=== PATIENT | female | born 1950 | race Caucasian/White ===

== ENCOUNTER 2017-07-03 05:26 | Day surgery (SDC) | payer MEDICAID, MEDICARE ==
[2017-07-01 09:49] LABS: ABSOLUTE EOSINOPHILS # (AUTO) 0.1 10^3/uL (0.0-0.6); ABSOLUTE LYMPHOCYTES (AUTO) 2.3 10^3/uL (0.5-4.7); ABSOLUTE MONOCYTES (AUTO) 0.9 10^3/uL (0.1-1.4); ABSOLUTE NEUT (AUTO) 5.7 10^3/uL (1.7-8.2); BASOPHILS % (AUTO) 0.3 % (0-2); EOSINOPHILS % (AUTO) 1.1 % (0-6); HEMATOCRIT 37.7 % (36.0-47.0); HEMOGLOBIN 12.9 g/dL (12.0-15.5); LYMPHOCYTES % (AUTO) 25.7 % (13-45); MEAN CORPUSCULAR HEMOGLOBIN 29.4 pg (27.0-33.4); MEAN CORPUSCULAR HGB CONC 34.2 g/dL (32.0-36.0); MEAN CORPUSCULAR VOLUME 86 fl (80-97); MONOCYTES % (AUTO) 10.2 % (3-13); RED BLOOD COUNT 4.38 10^6/uL (3.72-5.28); SEGMENTED NEUTROPHILS % (AUTO) 62.7 % (42-78); WHITE BLOOD COUNT 9.1 10^3/uL (4.0-10.5)
[2017-07-01 09:54] LABS: APPEARANCE,URINE CLEAR; BILIRUBIN,URINE NEGATIVE (NEGATIVE); GLUCOSE, URINE NEGATIVE (NEGATIVE); KETONES,URINE NEGATIVE (NEGATIVE); LEUKOCYTE ESTERASE,URINE SMALL (NEGATIVE); NITRITE,URINE NEGATIVE (NEGATIVE); PROTEIN,URINE NEGATIVE (NEGATIVE); URINE SPECIFIC GRAVITY 1.005; UROBILINOGEN,URINE NEGATIVE mg/dL (<2.0)
[2017-07-01 10:15] LABS: ANION GAP 8 (5-19); BLOOD UREA NITROGEN 10 mg/dL (7-20); CALCIUM 9.1 mg/dL (8.4-10.2); CARBON DIOXIDE 25 mmol/L (22-30); CHLORIDE 105 mmol/L (98-107); GLUCOSE 56 mg/dL (75-110); POTASSIUM 4.5 mmol/L (3.6-5.0); SODIUM 137.8 mmol/L (137-145)
--- NOTE | 2017-07-01 11:01 | RADIOLOGY REPORT (SQ) ---
EXAM DESCRIPTION: CHEST PA/LATERAL COMPLETED DATE/TIME: 07/01/2017 10:32 am REASON FOR STUDY: PRE OP COMPARISON: 04/27/2013 EXAM PARAMETERS: NUMBER OF VIEWS: two views TECHNIQUE: Digital Frontal and Lateral radiographic views of the chest acquired. RADIATION DOSE: NA LIMITATIONS: none FINDINGS: LUNGS AND PLEURA: No opacities, masses or pneumothorax. No pleural effusion. MEDIASTINUM AND HILAR STRUCTURES: No masses or contour abnormalities. HEART AND VASCULAR STRUCTURES: Heart normal size. No evidence for failure. BONES: No acute findings. HARDWARE: None in the chest. OTHER: No other significant finding. IMPRESSION: NO SIGNIFICANT RADIOGRAPHIC FINDING IN THE CHEST. TECHNICAL DOCUMENTATION: JOB ID: [id number] [email or web address]- All Rights Reserved
--- NOTE | 2017-07-01 13:14 | EKG REPORT ---
SEVERITY:- OTHERWISE NORMAL ECG - SINUS RHYTHM LATE PRECORDIAL TRANSITION. : Confirmed by: Augustin Simmons MD 01-Jul-2017 13:13:27
[~2017-07-03 05:26] MED LIST: CEFAZOLIN 2 GM/D5W RTU 2 GM/50 ML RTUPB IV PRN; LACTATED RINGERS 1000 ML IV PRN; LIDOCAINE 0.5% INJ-PF (5 MG/ML) 50 ML SDV SUBCUT PRN
[2017-07-03 06:18] VITALS: BP 116/74
[2017-07-03] MEDS ORDERED: BUPIVACAINE HCL 0.5 % INJ/PF 30 ML SDV ONE (06:55)
[2017-07-03] MEDS ORDERED: LIDOCAINE 1%/EPINEPHRINE INJ 20 ML VIAL ONE (06:55)
[2017-07-03] MEDS ORDERED: FENTANYL CITRATE INJ/PF 100 MCG/2 ML AMPUL ONE (06:58)
[2017-07-03] MEDS ORDERED: KETAMINE HCL INJ 500 MG/10 ML VIAL ONE (06:58)
[2017-07-03] MEDS ORDERED: PROPOFOL INJ 200 MG/20 ML VIAL IV ONE (06:59)
[2017-07-03] MEDS ORDERED: MIDAZOLAM 2 MG/2 ML INJ ONE (06:59)
== END 2017-07-03 07:20 | disposition home or self-care (01) ==
LOC: OROUT 05:26
PROVIDERS: ATTEND Orthopaedic Surgery
DX: Z01.818 Encounter for other preprocedural examination (principal); S83.242A Other tear of medial meniscus, current injury, left knee, initial encounter; X58.XXXA Exposure to other specified factors, initial encounter
CPT/HCPCS: 93005; 36415; 85025; 80048; 81001; 71020; 93010; J3490; J0690; J2250; J2704; J3010

== ENCOUNTER 2017-07-10 08:04 | Day surgery (SDC) | payer MEDICARE ==
[2017-07-10] MEDS ORDERED: MIDAZOLAM 2 MG/2 ML INJ ONE (08:34)
[2017-07-10] MEDS ORDERED: FENTANYL CITRATE INJ/PF 100 MCG/2 ML AMPUL ONE (08:34)
[2017-07-10] MEDS ORDERED: PROPOFOL INJ 200 MG/20 ML VIAL IV ONE (08:35)
[2017-07-10] MEDS ORDERED: BUPIVACAINE HCL 0.5 % INJ/PF 30 ML SDV ONE (08:37)
[2017-07-10] MEDS ORDERED: LIDOCAINE 1%/EPINEPHRINE INJ 20 ML VIAL ONE (08:37)
[2017-07-10] MEDS ORDERED: KETAMINE HCL INJ 500 MG/10 ML VIAL ONE (09:01)
[2017-07-10] MEDS ORDERED: DIPHENHYDRAMINE HCL 50 MG/ML VIAL IV PRN ×2 (09:07→09:11)
[2017-07-10] MEDS ORDERED: MORPHINE SULFATE 10 MG/ML INJ IV PRN ×2 (09:07→09:11)
[2017-07-10] MEDS ORDERED: FENTANYL CITRATE INJ/PF 100 MCG/2 ML AMPUL IV PRN ×6 (09:07→09:11)
[2017-07-10] MEDS ORDERED: PROMETHAZINE HCL INJ 25 MG/1 ML VIAL IV PRN ×4 (09:07→09:11)
[2017-07-10] MEDS ORDERED: OXYCODONE-ACETAMINOPHEN 5-325 MG TABLET PO PRN ×4 (09:07→09:11)
[2017-07-10] MEDS ORDERED: MEPERIDINE HCL/PF INJ 25 MG/1 ML DISP.SYRIN IV PRN ×2 (09:07→09:11)
--- NOTE | 2017-07-10 09:29 | Operative Report ---
Operative Report DATE OF SURGERY: 07/10/17 PREOPERATIVE DIAGNOSIS: Left medial meniscal tear POSTOPERATIVE DIAGNOSIS: Left medial meniscal tear. 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 Grade 2 chondral malacia patellofemoral compartment. Intact ACL. Grade II chondromalacia of the lateral compartment. Lateral meniscal tear OPERATION: Arthroscopic left partial medial and lateral meniscectomy SURGEON: DENICE CONNER ANESTHESIA: LMAC ESTIMATED BLOOD LOSS: Minimal PROCEDURE: With the patient supine on the operative table left lower extremities prepped and draped in sterile fashion. Knee is insufflated with a combination of Marcaine, Xylocaine, and epinephrine through medial lateral patella portals. Subsequently medial lateral patella portals are created and used for the introduction of the arthroscope and debridement instrumentation. The joint is examined in a systematic fashion findings as above. Using combination of basket Benedict, mechanical shaver, and electric frequency ablation probable partial lateral meniscectomy was performed from approximately 5:00 to 12:00 in the face of the dial. Partial medial meniscectomy was similarly performed from approximately 8:00 to 12:00 on the face of the dial. The joint is examined in systematic fashion again with no new findings. Instrumentation was removed. The portals closed with interrupted nylon. A sterile compressive dressing is applied. The patient returned to the PACU in satisfactory condition.
[2017-07-10] MEDS ORDERED: OXYCODONE HCL IR 5 MG TABLET PO PRN (09:39)
[2017-07-10] MEDS ORDERED: ONDANSETRON 4 MG TAB.RAPDIS SL PRN (09:40)
[2017-07-10] MEDS: FENTANYL CITRATE INJ/PF 100 MCG/2 ML AMPUL ONE ×2 (09:45→09:54)
[2017-07-10] MEDS ORDERED: OXYCODONE-ACETAMINOPHEN 5-325 MG TABLET ONE (09:58)
[2017-07-10 11:48] VITALS: BP 134/74
== END 2017-07-10 11:50 | disposition home or self-care (01) ==
LOC: OROUT 08:04
PROVIDERS: ATTEND Orthopaedic Surgery
PROC: 0SBD4ZZ Excision of Left Knee Joint, Percutaneous Endoscopic Approach (ICD-10-PCS; 2017-07-10)
PROC: 0SBD4ZZ Excision of Left Knee Joint, Percutaneous Endoscopic Approach (ICD-10-PCS; principal; 2017-07-10 08:45)
DX: S83.282A Other tear of lateral meniscus, current injury, left knee, initial encounter (principal); S83.242A Other tear of medial meniscus, current injury, left knee, initial encounter; X58.XXXA Exposure to other specified factors, initial encounter; M22.42 Chondromalacia patellae, left knee; K21.9 Gastro-esophageal reflux disease without esophagitis; F17.210 Nicotine dependence, cigarettes, uncomplicated; Z79.899 Other long term (current) drug therapy
CPT/HCPCS: 29880; J2250; J3010; J3490 ×2; A9270; J2704; J0690; 1400

== ENCOUNTER 2019-03-18 11:03 | Day surgery (SDC) | payer MEDICARE, OTHER ==
--- NOTE | 2019-03-11 11:14 | RADIOLOGY REPORT (SQ) ---
EXAM DESCRIPTION: CHEST PA/LATERAL COMPLETED DATE/TIME: 03/11/2019 10:59 am REASON FOR STUDY: PREOP COMPARISON: 04/27/2013 EXAM PARAMETERS: NUMBER OF VIEWS: two views TECHNIQUE: Digital Frontal and Lateral radiographic views of the chest acquired. RADIATION DOSE: NA LIMITATIONS: none FINDINGS: LUNGS AND PLEURA: No opacities, masses or pneumothorax. No pleural effusion. MEDIASTINUM AND HILAR STRUCTURES: No masses or contour abnormalities. HEART AND VASCULAR STRUCTURES: Heart normal size. No evidence for failure. BONES: No acute findings. HARDWARE: None in the chest. OTHER: No other significant finding. IMPRESSION: NO SIGNIFICANT RADIOGRAPHIC FINDING IN THE CHEST. TECHNICAL DOCUMENTATION: JOB ID: [id number] [employer]- All Rights Reserved Reading location - IP/workstation name: [email or web address]
[2019-03-11 11:36] LABS: HEMATOCRIT 37.2 % (36.0-47.0); HEMOGLOBIN 12.7 g/dL (12.0-15.5); MEAN CORPUSCULAR HGB CONC 34.2 g/dL (32.0-36.0); MEAN CORPUSCULAR VOLUME 85 fl (80-97); PLATELET COUNT 444 10^3/uL (150-450); RED BLOOD COUNT 4.38 10^6/uL (3.72-5.28); RED CELL DISTRIBUTION WIDTH 15.2 % (11.5-14.0); WHITE BLOOD COUNT 9.1 10^3/uL (4.0-10.5)
[2019-03-11 12:06] LABS: ANION GAP 8 (5-19); BLOOD UREA NITROGEN 11 mg/dL (7-20); CALCIUM 9.1 mg/dL (8.4-10.2); CARBON DIOXIDE 26 mmol/L (22-30); CHLORIDE 101 mmol/L (98-107); GLUCOSE 80 mg/dL (75-110); POTASSIUM 4.9 mmol/L (3.6-5.0)
--- NOTE | 2019-03-11 12:20 | EKG REPORT ---
SEVERITY:- NORMAL ECG - SINUS RHYTHM : Confirmed by: Augustin Simmons MD 11-Mar-2019 12:20:16
[~2019-03-18 11:03] MED LIST changes: +CEFAZOLIN 1 GM/D5W RTU 1 GM/50 ML RTUPB IV PRN; +LACTATED RINGERS 1000 ML IV PRN; +LIDOCAINE 0.5% INJ-PF (5 MG/ML) 50 ML SDV SUBCUT PRN; -OXYCODONE-ACETAMINOPHEN 5-325 MG TABLET ONE
[2019-03-18] MEDS ORDERED: CEFAZOLIN 1 GM/D5W RTU 1 GM/50 ML RTUPB IV ONE (11:45)
[2019-03-18] MEDS ORDERED: MIDAZOLAM 2 MG/2 ML INJ IV ONE (12:15)
[2019-03-18] MEDS ORDERED: MIDAZOLAM 2 MG/2 ML INJ ONE ×2 (12:22→13:23)
[2019-03-18] MEDS ORDERED: FENTANYL CITRATE INJ/PF 100 MCG/2 ML AMPUL ONE ×2 (13:23→14:13)
[2019-03-18] MEDS ORDERED: PROPOFOL INJ 200 MG/20 ML VIAL IV ONE (13:23)
--- NOTE | 2019-03-18 14:27 | RADIOLOGY REPORT (SQ) ---
EXAM DESCRIPTION: NM LYMPHATICS/LYMPH GLANDS COMPLETED DATE/TIME: 03/18/2019 1:45 pm REASON FOR STUDY: C50.911 MALIGNANT NEOPLASM OF UNSPECIFIED SITE OF RIGHT FEMALE BREAST C50.911 MAL IGNANT NEOPLASM OF UNSP SITE OF RIGHT FEMALE JAD Z01.818 ENCOUNTER FOR OTHER PREPROCEDURAL EXAMINAT ION COMPARISON: None RADIONUCLIDE AND DOSE: 543 microcuries TC-99m tilmanocept - [employer]. The route of agent administration: Subcutaneous in the skin. TECHNIQUE: The skin of the right breast was prepped in sterile fashion. The radiopharmaceutical was administered in equally divided doses in the periareolar breast. LIMITATIONS: None. FINDINGS: Images demonstrate activity at the injection site. IMPRESSION: ADMINISTRATION OF RADIOPHARMACEUTICAL FOR SENTINEL LYMPH NODE EVALUATION. TECHNICAL DOCUMENTATION: JOB ID: [id number] [employer]- All Rights Reserved Reading location - IP/workstation name: [email or web address]
[2019-03-18] MEDS ORDERED: DEXAMETHASONE SOD PHOSPHATE INJ 4 MG/1 ML VIAL ONE (14:59)
[2019-03-18] MEDS ORDERED: ONDANSETRON HCL INJ/PF 4 MG/2 ML SDV ONE (14:59)
[2019-03-18] MEDS ORDERED: KETOROLAC TROMETHAMINE 60 MG/2 ML SDV ONE (14:59)
[2019-03-18] MEDS ORDERED: MORPHINE SULFATE 10 MG/ML INJ IV PRN (15:30)
[2019-03-18] MEDS ORDERED: MEPERIDINE HCL/PF INJ 25 MG/1 ML DISP.SYRIN IV PRN (15:30)
[2019-03-18] MEDS ORDERED: OXYCODONE-ACETAMINOPHEN 5-325 MG TABLET PO PRN ×3 (15:30→16:28)
[2019-03-18] MEDS ORDERED: DIPHENHYDRAMINE HCL 50 MG/ML VIAL IV PRN (15:30)
[2019-03-18] MEDS ORDERED: FENTANYL CITRATE INJ/PF 100 MCG/2 ML AMPUL IV PRN ×3 (15:30)
[2019-03-18] MEDS ORDERED: ONDANSETRON HCL INJ/PF 4 MG/2 ML SDV IV PRN (15:30)
[2019-03-18] MEDS ORDERED: LIDOCAINE 1%/EPINEPHRINE INJ 20 ML VIAL INJ ONE (15:35)
--- NOTE | 2019-03-18 16:28 | Discharge Summary ---
Discharge Summary (SDC) - Discharge Final Diagnosis: Right breast cancer Date of Surgery: 03/18/19 Discharge Date: 03/18/19 Condition: Good Treatment or Instructions: [facility] [address], [place] [address] Care Instructions Following Your Lumpectomy Activities: Resume normal activities when you feel comfortable. It is best to remain as active as possible to speed your recovery. It is common to experience some fatigue after surgery and you may find that short naps are helpful. Avoid strenuous activity such as weight lifting, tennis, etc at your surgical site for two weeks. Perform gentle arm exercises daily and do not favor your operative arm to due increased risk of mobility issues postoperatively. No driving for 7 days after surgery. Do not drive if you are taking pain medication other than Tylenol or Ibuprofen. No swimming, tub baths or soaking in a hot tub for 4 weeks. There are no dietary restrictions. Do not smoke as this impairs wound healing. Surgical Site care: You may shower 24 hours after surgery to include washing the wound with soap and water using your hands. Do not scrub the incision. Pat the area dry with a towel. Leave skin glue intact. You do not need to recover the wound although some patients find that they feel more comfortable using a light dressing for a few days to absorb any minimal drainage which may occur. Do not use heating pad or apply an ice pack to the operative site. You may apply deodorant if you are careful to avoid getting it on the wound itself. Wear a supportive bra. Medications: Take Toradol 10mg one pill by mouth every six hours as needed for pain. Do not take additional NSAIDs such as ibuprofen, goodies powder, advil with the Toradol . You may take Tylenol as needed. You may experience constipation after surgery while taking pain medications. If using a narcotic on a regular basis, take a stool softener such as Colace twice a day. It is helpful to stay hydrated by drinking lots of fluids. Walking is also helpful and is good exercise after surgery. If you need extra help, use Milk of Magnesia according to the directions on the package. Follow-up: Call our office at to make a follow-up appointment in 10-14 days. Your doctor will call to discuss the pathology report with you as soon as it is available. Concerns: If you had a sentinel lymph node biopsy with your mastectomy, your urine may have a greenish discoloration. This is normal and will resolve as the blue dye slowly leaves your system. If you notice significant leakage around the drains, this is not normal. The drains may be clogged. Please call our office to come in immediately for the drains to be checked. Some bruising may occur and will go away over time. If you have a fever of 101.5 or greater, chills, redness at the incision site, excessive drainage from your wound or severe pain not relieved by pain medication, call your doctor. A physician is available 24 hours a day 7 days a week in addition to regular office hours. If problems a rise after normal office hours please call the hospital at . Please call if you have any questions or concerns. Prescriptions: Ketorolac Tromethamine [Toradol 10 mg Tablet] 10 mg PO Q6HP PRN #20 tablet PRN Reason: Referrals: LUISE ALBRIGHT MD [ACTIVE STAFF] - 03/27/19 10:15 am GARCIA FELIX MD [Primary Care Provider] - Discharge Diet: As Tolerated Discharge Activity: Activity As Tolerated, Balance Activity w/Rest, Walk Frequently Report the Following to Your Physician Immediately: Increase in Pain, Fever over 101 Degrees, Unusual Bleeding, Redness, Swelling, Warmth, Drainage-Foul Smelling
--- NOTE | 2019-03-18 16:28 | Operative Report ---
Operative Report DATE OF SURGERY: 03/18/19 PREOPERATIVE DIAGNOSIS: 1. Invasive ductal carcinoma right breast status post core biopsy clip marker placement. 2. Smoker. POSTOPERATIVE DIAGNOSIS: Same OPERATION: 1. [place] lymph node biopsy right axilla x1. 2. Ultrasound directed right breast lumpectomy. 3. Interpretation of intraoperative specimen radiograph SURGEON: LUIS E ALBRIGHT 1ST SOLE SEWER HAND: YASH WRIGHT ANESTHESIA: GA TISSUE REMOVED OR ALTERED: 1 sentinel lymph nodes; right breast lump COMPLICATIONS: None ESTIMATED BLOOD LOSS: Minimal INTRAOPERATIVE FINDINGS: See below PROCEDURE: Patient was seen in the preop holding area underwent lymphoscintigraphy. There was an area of increased uptake of radioactivity in the right axilla. The patient was then taken to the main operating room and general anesthesia was induced. The right arm was abducted, right breast exposed. We then injected the right breast, 10 o'clock position, areolar border, intradermally with 2 cc of full-strength plain blue. The right breast was massaged The right breast and axilla were then prepped and draped in sterile fashion Surgical plan and surgical timeout were conducted. We proceeded with the right breast lumpectomy first. Using ultrasound as a guide, as well as palpation, the target lesion, approximately centimeter tumor was localized 4-1/2 cm from the air areolar border, 11:30 position right breast. The skin was anesthetized 1% plain lidocaine. A standard right breast lumpectomy was then performed by creating an ellipse of skin approximately 6 cm long and half centimeter wide. Underlying parenchyma was removed with the skin using a combination of blunt and electrocautery dissection. The final specimen was removed from the right breast. Again ultrasonography used to keep the target lesion in the center of the lumpectomy specimen. The specimen was marked with a short suture in the superior position long suture in the lateral position. The specimen was taken immediately to Dr. Hossein Gorman, pathologist, who inked the specimen, and transected vertically. The closest margin was felt to be the superior edge, with the tumor approximately 5 mm away. [place] the resection was sufficient We returned to the patient, performed the sentinel lymph node biopsy. Skin was anesthetized in the right axilla with 1% plain lidocaine. A small 2 cm incision was made with a #10 blade, and a single hot blue lymph node with an in vivo count of 13,025, an ex vivo count of 16,766 was removed. It was sent for permanent analysis. We returned to the axilla to check for any other areas of activity and there were none. At this point felt the operation was complete. Sponge and needle counts are correct. Avitene was placed in the recesses of the wound, and wounds closed with 2-0 Vicryl and Dermabond glue Patient tolerated the procedure well, extubated, taken recovery in stable condition. The physician city carrier assistant, Ms. Guevara, provided assistance during this case by: asssiting with retracting tissue, instillation of local anesthesia and closure of skin incisions.
--- NOTE | 2019-03-18 16:29 | RADIOLOGY REPORT (SQ) ---
EXAM DESCRIPTION: BREAST SPECIMEN COMPLETED DATE/TIME: 03/18/2019 4:14 pm REASON FOR STUDY: RT BREAST SPECIMEN IN OR C50.911 MALIGNANT NEOPLASM OF UNSP SITE OF RIGHT FEMALE JAD Z01.818 ENCOUNTER FOR OTHER PREPROCEDURAL EXAMINATION COMPARISON: None. TECHNIQUE: Specimen radiograph from breast procedure performed in the operating room. LIMITATIONS: None. FINDINGS: Specimen radiograph from breast procedure performed in the operating room. Please see procedure note for details and final pathology. IMPRESSION: Specimen radiograph. TECHNICAL DOCUMENTATION: JOB ID: [id number] Reading location - IP/workstation name: [email or web address]
[2019-03-18] MEDS ORDERED: ACETAMINOPHEN 1,000 MG/100 ML RTUPB IV ONE (16:49)
[2019-03-18] MEDS: MEPERIDINE HCL/PF INJ 25 MG/1 ML DISP.SYRIN ONE ×2 (16:55→17:00)
[2019-03-18 18:57] VITALS: BP 132/63
== END 2019-03-18 18:55 | disposition home or self-care (01) ==
LOC: OROUT 11:03
PROVIDERS: ATTEND Surgery
DX: C50.811 Malignant neoplasm of overlapping sites of right female breast (principal); Z17.0 Estrogen receptor positive status [ER+]; F17.210 Nicotine dependence, cigarettes, uncomplicated; Z01.818 Encounter for other preprocedural examination; Z80.41 Family history of malignant neoplasm of ovary
CPT/HCPCS: 19301; 38500; 93005; 36415; 85027; 80048; 88342 ×2; 88305 ×2; 88307 ×2; 71046; 78195; 93010; 01610; 76098; A9520; J2250; J0690; J1100; J1885; J3010; J3490 ×2; J2175; J2405; J2704; J0131; Q9968; 1610; 404

== ENCOUNTER → 2019-03-18 | Outpatient (CLI) | payer MEDICARE, OTHER ==
[~2019-03-18] MED LIST changes: -CEFAZOLIN 2 GM/D5W RTU 2 GM/50 ML RTUPB IV PRN; -LACTATED RINGERS 1000 ML IV PRN; -LIDOCAINE 0.5% INJ-PF (5 MG/ML) 50 ML SDV SUBCUT PRN; +OXYCODONE-ACETAMINOPHEN 5-325 MG TABLET ONE
== END ==
LOC: RAD 11:30
PROVIDERS: ATTEND Surgery
DX: Z00.00 Encounter for general adult medical examination without abnormal findings (principal)